=== PATIENT | male | born 1985 | race Caucasian/White ===

== ENCOUNTER 2020-08-06 19:38 | Emergency (ER) | payer OTHER, SELFPAY ==
--- NOTE | 2020-08-06 19:43 | ED.EXTPRO ---
HPI - Extremity Problem General Chief complaint: Extremity Problem,Nontraumatic Stated complaint: Rt leg swelling Source: patient and RN notes reviewed Limitations: no limitations History of Present Illness HPI Narrative: The patient, previously mostly healthy w/ tetanus status uncertain, presents with right foot pain. Patient states he jumped in a chlorine pool and abraded his foot in a shallow water, a couple days ago. He now complains of increasing redness, edema , at the 3 affected quarter or dime sized abrasions on his extensor aspect of the foot. Symptoms are mild, so only slightly better with elevation Related Data Home Medications Medication Instructions Recorded Confirmed omeprazole 20 mg tablet,delayed 20 mg PO DAILY PRN 05/06/19 11/09/19 release cyanocobalamin (vitamin B-12) 1,000 mcg PO DAILY 11/11/19 11/11/19 1,000 mcg tablet Allergies Allergy/AdvReac Type Severity Reaction Status Date / Time Penicillins Allergy Unknown Verified 06/11/14 12:31 Review of Systems Review of Systems: Narrative: The patient has been informed that they may have pre-hypertension or Hypertension based on a BP reading in the department. I recommend that the patient call the primary care provider listed on their discharge instructions or a physician of their choice this week to arrange follow up for further evaluation of possible pre-hypertension or Hypertension General/Constitutional: No weight loss,fever Eyes: N0: Redness,discharge Ears/Nose/Throat: No: Epistaxis,ear discharge Respiratory: Denies: Hemoptysis Gastrointestinal: No Vomiting, Bleeding-rectal Skin: No Lumps, REPORTS eruption Neurologic: No Focal Weakness,Sz Hematologic: Denies: Petechiae/Purpura Psychiatric: No: Suicida ideationl All Other Systems: Reviewed and Negative [facility] Past Medical History Medical History (Updated 08/07/20 @ 00:01 by Brent Lara) BMI 33.0-33.9,adult Encounter for wellness examination in adult Fatty liver GERD (gastroesophageal reflux disease) Mixed hyperlipidemia Seasonal allergic rhinitis Vitamin B12 deficiency anemia Family History Family History (Updated 05/06/19 @ 15:57 by Tammie Cadet MA) Father , 38 Heart disease Social History Social History (Updated 05/06/19 @ 15:58 by Tammie Cadet MA) Smoking status: Never smoker Alcohol intake: current Substance use: never Substance use type: does not use Gender identity (if verbalized by the patient): Male Comments At time of signature, agree with nursing past medical, surgical, social and family history. There is no relevant family history pertinent to the presenting complaint Exam Narrative: Exam Narrative: General Appearance: Obese /well nourished, Conjunctiva clear Ears: External ear normal, Auditory canal normal Nose: Normal nose, Nares clear Mouth/Throat: Normal appearing, Normal lips, Supple Respiratory: Airway patent, No respiratory distress Skin: Warm, Dry;mild redness surrounding 3 abrasions MS-foot: Normal strength (mostly intact, limited flexion/extension by pain), Tenderness (extensor, with mild decreased ROM), Swelling (diffuse), Other (no anterior drawer, no collateral laxity, no Achilles tenderness, no fifth MT tenderness) Neurological: A&O x3, Speech clear, CN II-XII intact Psychiatric: Normal mood, Normal affect Course Vital Signs Vital signs: Vital Signs Temperature 99.2 F 08/06/20 19:50 Pulse Rate 81 08/06/20 19:50 Respiratory Rate 20 08/06/20 19:50 Blood Pressure 156/60 H 08/06/20 19:50 Pulse Oximetry 100 08/06/20 19:50 Temperature 99.2 F 08/06/20 19:50 Pulse Rate 81 08/06/20 19:50 Respiratory Rate 20 08/06/20 19:50 Blood Pressure 156/60 H 08/06/20 19:50 Pulse Oximetry 100 08/06/20 19:50 Discharge Plan Discharge Clinical Impression: Infected abrasion of foot Qualifiers: Encounter type: initial encounter Laterality: right Qualified Code(s):
[2020-08-06] MEDS: TETANUS,DIPHTHERIA,AC PERTUSSIS ADULT (0.5 ML) BOOSTRIX IM (19:49)
[2020-08-06 19:50] VITALS: BP 156/60; PULSE 81; RESP 20; TEMP 37.3; O2SAT 100
== END 2020-08-06 19:59 | disposition home or self-care (01) ==
PROVIDERS: Emergency Provider Emergency Medicine; PCP Family Medicine
DX: L08.9 Local infection of the skin and subcutaneous tissue, unspecified (principal); S90.811A Abrasion, right foot, initial encounter; W16.022A Fall into swimming pool striking bottom causing other injury, initial encounter; Z23 Encounter for immunization
CPT/HCPCS: 90471; 90715; 99213; G0463

== ENCOUNTER 2022-06-03 18:28 | Emergency (ER) | payer OTHER, SELFPAY ==
[2022-06-03 18:42] VITALS: BP 142/82; PULSE 69; RESP 16; TEMP 36.9; O2SAT 100
--- NOTE | 2022-06-03 19:16 | ED.SKABFB ---
HPI - Skin/Abscess/Foreign Bdy General Chief complaint: Skin/Abscess/Foreign Body Stated complaint: rash Time Seen by Provider: 06/03/22 18:29 Source: patient Mode of arrival: ambulatory Limitations: no limitations History of Present Illness HPI narrative: 36-year-old male presents to [facility] with complaints of possible poison felicitas to his bilateral arms, waist and left lateral abdomen for the past week. Patient reports the rash started after he cut down trees. Patient has been applying iyig-qfb-croilxy creams and washes with little relief. Patient has shortness of breath, wheezing, fever, body aches, chills, nausea, vomiting or diarrhea MD complaint: other (Poison felicitas) Onset (ago): week(s) (1) Relieving factors: none Exacerbating factors: none Treatments prior to arrival: other (Gayn-lii-leqtsmt ointments and washes) Related Data Allergies Allergy/AdvReac Type Severity Reaction Status Date / Time Penicillins Allergy Unknown Verified 06/11/14 12:31 Review of Systems Constitutional: Constitutional: Denies chills, Denies fatigue, Denies fever(s) and Denies weakness ENT: Denies dizziness and Denies nasal congestion Respiratory: Respiratory: Denies cough, Denies dyspnea and Denies wheezing Gastrointestinal: Gastrointestinal: Denies diarrhea, Denies nausea and Denies vomiting Integumentary/Breasts: Skin/Breast: Denies pruritus, Denies erythema, Reports rash and Denies skin ulcer Neurologic: Denies vertigo, Denies dizziness, Denies syncope and Denies headache(s) Hematologic/Lymphatic: Hematologic/Lymphatic: Denies easy bleeding and Denies easy bruising PMFSH Past Medical History Medical History BMI 33.0-33.9,adult Encounter for wellness examination in adult Fatty liver GERD (gastroesophageal reflux disease) Mixed hyperlipidemia Seasonal allergic rhinitis Vitamin B12 deficiency anemia Family History Family History Father , 38 Heart disease Social History Social History Smoking status: Never smoker Alcohol intake: current Alcohol use details: beer 4-6 a month Substance use: never Substance use type: does not use Gender identity (if verbalized by the patient): Male Comments At time of signature, I agree with nursing past medical, surgical, social and family history. There is no relevant family history pertinent to the presenting complaint. Exam Const: General: healthy appearing and no acute distress Nutritional Appearance: well nourished Orientation/consciousness: patient oriented x3 Limitations: no limitations HENMT: Head: normal to inspection Eyes: Conjunctivae: conjunctivae normal Neck: Neck: normal visual inspection Chest: Chest palpation & inspection: normal inspection of the chest Resp: Effort & Inspection: normal respiratory effort and not labored Auscultation: clear to auscultation bilaterally, no crackles, no rales, no rhonchi and no wheezes Cardio: Rate: regular rate Rhythm: regular rhythm Heart sounds: no murmurs Skin: General skin exam: normal color Wounds: no wounds Other: Linear erythematous vesicular rash noted to bilateral arms, left is worse than right, waistline and left lateral abdomen representing poison felicitas type rash. There is no purulent drainage, streaking erythema or signs of infection noted Neuro: General: patient oriented x3 Speech: normal speech Psych: Affect: normal affect Attitude: cooperative Course Course Level of Care: Express Care Visit Vital Signs Vital signs: Vital Signs Temperature 36.9 C 06/03/22 18:42 Pulse Rate 69 06/03/22 18:42 Respiratory Rate 16 06/03/22 18:42 Blood Pressure 142/82 H 06/03/22 18:42 Pulse Oximetry 100 06/03/22 18:42 Oxygen Delivery Room Air 06/03/22 18:42 Temperature 36.9 C 06/03/22 18:42 Pulse Rate 69
[2022-06-03] MEDS: methylPREDNISolone SOD SUCC 125 MG VIAL IM (19:20)
== END 2022-06-03 19:42 | disposition home or self-care (01) ==
PROVIDERS: Emergency Provider Nurse Practitioner Family; PCP Family Medicine
DX: L23.7 Allergic contact dermatitis due to plants, except food (principal); K21.9 Gastro-esophageal reflux disease without esophagitis; E78.2 Mixed hyperlipidemia; K76.0 Fatty (change of) liver, not elsewhere classified
CPT/HCPCS: 96372; 99213; G0463; J2930

== ENCOUNTER 2023-10-27 17:48 | Emergency (ER) | payer OTHER, SELFPAY ==
--- NOTE | ~2023-10-27 | XR_ITS ---
EXAMINATION: XR chest 2V Exam Date/Time: 10/27/2023 18:25 CDT HISTORY: cough congestion x 4 days Comparison: 09/23/2011. RESULT: Lines, tubes, and devices: None. Lungs and pleura: Clear. Cardiomediastinal silhouette: Stable. Other: No acute osseous or upper abdominal finding. IMPRESSION: No acute cardiopulmonary process. Reviewed, dictated and finalized at location K.
[2023-10-27 18:02] VITALS: BP 129/79; PULSE 86; RESP 16; TEMP 37.3; O2SAT 99
[2023-10-27 18:03] VITALS: BP 129/79; PULSE 86; RESP 16; TEMP 37.3; O2SAT 99
--- NOTE | 2023-10-27 18:04 | ED.URI ---
HPI - URI/Sore Throat General Chief Complaint: Upper Respiratory Infection Stated Complaint: chest congestion Time Seen by Provider: 10/27/23 18:18 Source: patient, RN notes reviewed and old records reviewed Mode of arrival: ambulatory Limitations: no limitations History of Present Illness HPI Narrative: 37-year-old male presents to the [facility] with chest congestion, sinus congestion postnasal drainage discharge the , 4 days ago. Has been using Flonase and an tjvg-mxn-ydohnnk allergy medication. Related Data Allergies Allergy/AdvReac Type Severity Reaction Status Date / Time Penicillins Allergy Unknown Unknown Verified 10/27/23 18:02 Review of Systems Review of Systems: All systems reviewed & are unremarkable except as noted in HPI and below Constitutional: Constitutional: Reports no additional constitutional complaints Eyes: Eyes: Reports no additional eye complaints ENT: Reports as per HPI Cardiovascular: Cardiovascular: Reports no additional cardiovascular complaints, Denies chest pain and Denies dyspnea Respiratory: Respiratory: Reports as per HPI, Denies chest congestion, Reports cough and Denies dyspnea Gastrointestinal: Gastrointestinal: Reports no additional gastrointestinal complaints, Denies abdominal pain, Denies nausea and Denies vomiting Musculoskeletal: Musculoskeletal: Reports no additional musculoskeletal complaints Integumentary/Breasts: Skin/Breast: Reports system reviewed and no additional complaints, except as docu Neurologic: Reports system reviewed and no additional complaints, except as documented Psychiatric: Psychiatric: Reports no additional psychiatric complaints Allergic/Immunologic: Allergic/Immunologic: Reports no additional allergic/immunologic complaints [facility] Past Medical History Medical History BMI 33.0-33.9,adult Encounter for wellness examination in adult Fatty liver GERD (gastroesophageal reflux disease) Mixed hyperlipidemia Seasonal allergic rhinitis Vitamin B12 deficiency anemia Family History Family History Father , 38 Heart disease Social History Social History Smoking status: Never smoker Alcohol intake: current Alcohol use details: beer 4-6 a month Substance use: never Substance use type: does not use Gender identity (if verbalized by the patient): Male Comments At the time of my signature, I reviewed and agree with the nursing past medical, surgical, social, and family history. There is no relevant family history pertinent to the patient complaint. Exam Const: General: cooperative, healthy appearing, comfortable, no acute distress, well developed, alert and well nourished Nutritional Appearance: well nourished Orientation/consciousness: patient oriented x3 Limitations: no limitations HENMT: Head: normal to inspection Ears: hearing grossly normal bilaterally, external ears normal, EAC's normal, mastoids normal, no periauricular adenopathy and TM abnormal with fluid behind the TM bilateral Face/Nose/Sinus: Normal external nose present, Normal nares present, Abnormal mucous membranes and turbinates present boggy bilateral and erythematous bilateral, normal facial exam and face symmetric Face and sinus: normal facial exam and face symmetric Mouth: Yes Normal oral and palatal mucosa present and Yes tongue normal Throat: tonsils normal, uvula midline, postnasal drainage and no uvular edema Eyes: General: appearance normal, both eyes and all related structures Alignment and Position: alignment normal Periorbital: periorbital findings normal Pupils: Equal, round and reactive pupils present EOM: EOMs intact bilaterally Neck: Neck: normal visual inspection, full ROM, no lymphadenopathy and no meningeal signs Chest: Chest palpation & inspection: normal inspection of the c
[2023-10-27 18:24] LABS: EDINFLUASCREEN Negative (Negative); EDINFLUBSCREEN Negative (Negative); EDSTREPNEGPOS1 Negative (Negative)
== END 2023-10-27 18:49 | disposition home or self-care (01) ==
PROVIDERS: Emergency Provider Nurse Practitioner; PCP Family Medicine
DX: J40 Bronchitis, not specified as acute or chronic (principal); J32.9 Chronic sinusitis, unspecified; Z20.822 Contact with and (suspected) exposure to COVID-19; K76.0 Fatty (change of) liver, not elsewhere classified; K21.9 Gastro-esophageal reflux disease without esophagitis; E78.2 Mixed hyperlipidemia
CPT/HCPCS: 71046; 87081; 87426; 87804; 87880; 99213; G0463